=== PATIENT | female | born 1950 | race Caucasian/White ===

== ENCOUNTER → 2016-11-07 | Day surgery (SDC) | payer MEDICARE ==
[~2016-11-07] MED LIST: AMBI5TAB PO; ASPI81CH37 PO; ATEN50TA PO; ATOR1TAB18 PO; CLOB0.055 TOPICAL; CONTOUR1 SQ; FLUT50SP EACH NARE; GLIM1TAB PO; LACTATED RINGER'S 1000 ML INJ 1,000 ML ONE; METF500 PO; NITR.3 SL; OMEP40CA2 PO; PAXI30TA7 PO; PLAV75TA29 PO; PROPOFOL 500 MG/50 ML BTL IV ONE; [UNRECOGNIZED DRUG - CODE] TOPICAL
--- NOTE | 2016-11-07 11:27 | GIPROC ---
[facility] [address] [facility], [address] EGD PROCEDURE REPORT EXAM DATE: 11/07/2016 PATIENT NAME: Penelope Fay MR #: [id number] BIRTHDATE: 1950 ATTENDING: Xochitl Hnery MD ORDER #: [id number] TRAPEZE ARTIST: Soila Stevens RN STATUS: outpatient INDICATIONS: The patient is a 66 yr old female here for an EGD due to reflux, abdominal pain, abnormal ct PROCEDURE PERFORMED: EGD w/ biopsy MEDICATIONS: None and Per Anesthesia. TOPICAL ANESTHETIC: none CONSENT: The patient understands the risks and benefits of the procedure and understands that these risks include, but are not limited to: sedation, allergic reaction, infection, perforation and/or bleeding. Alternative means of evaluation and treatment include, among others: physical exam, x-rays, and/or surgical intervention. The patient elects to proceed with this endoscopic procedure. medical equipment was checked for proper function. Hand hygiene and appropriate measures for infection prevention was taken. After the risks, benefits and alternatives of the procedure were thoroughly explained, Informed consent was verified, confirmed and timeout was successfully executed by the treatment team. The patient was anesthetized with topical anesthesia and the EC-2990Li ([id number]) endoscope was introduced through the mouth and advanced to the second portion of the duodenum. Retroflexed views revealed a hiatal hernia The gastroscope was then slowly withdrawn and removed. Duodenum normal-biopsy gastritis antrum-biopsy esophagitis distal esophagus-biopsy. ADVERSE EVENTS: There were no complications. IMPRESSIONS: 1. Duodenum normal-biopsy gastritis antrum-biopsy esophagitis distal esophagus-biopsy 2. Retroflexed views revealed a hiatal hernia RECOMMENDATIONS: 1. Await biopsy results. Biopsy results will not be ready for 7-10 days. If you don't hear from us in two weeks, call our office for biopsy results. 2. Anti-reflux regimen 3. Continue PPI PATIENT CONDITION: stable DISPOSITION: Home REPEAT EXAM: EGD pending biopsy results Xochitl Henry MD eSigned: Xochitl Henry MD 11/07/2016 11:26 AM cc: [employer] Jeannie
--- NOTE | 2016-11-07 11:30 | GIPROC ---
[facility] [address] [facility], [address] COLONOSCOPY PROCEDURE REPORT EXAM DATE: 11/07/2016 PATIENT NAME: Penelope Fay MR #: [id number] BIRTHDATE: 1950 ENDOSCOPIST: Xochitl Henry MD ORDER #: [id number] [employer] OUTFITTER: Soila Stevens RN STATUS: outpatient INDICATIONS: The patient is a 66 yr old female here for a colonoscopy due to abdominal pain, abnormal ct PROCEDURE PERFORMED: Colonoscopy with biopsy MEDICATIONS: None and Per Anesthesia. PREP QUALITY: good PREP TYPE:Other: ESTIMATED BLOOD LOSS: None CONSENT: The patient understands the risks and benefits of the procedure and understands that these risks include, but are not limited to: sedation, allergic reaction, infection, perforation and/or bleeding. Alternative means of evaluation and treatment include, among others: physical exam, x-rays, and/or surgical intervention. The patient elects to proceed with this endoscopic procedure. medical equipment was checked for proper function. Hand hygiene and appropriate measures for infection prevention was taken. After the risks, benefits and alternatives of the procedure were thoroughly explained, Informed consent was verified, confirmed and timeout was successfully executed by the treatment team. A digital exam was performed and revealed external hemorrhoids The EC-2990Li ([id number]) and EC-3490Li ([id number]) endoscope was introduced through the anus and advanced to the terminal ileum which was intubated for a short distance. The instrument was then slowly withdrawn as the colon was fully examined. COLON FINDINGS: Diverticulosis sigmoid,descending spastic sigmoid colon erythema sigmoid-biopsy terminal ileum , cecum looked normal. Retroflexed views revealed internal hemorrhoids and Retroflexed views revealed small internal hemorrhoids The scope was then completely withdrawn from the patient and the procedure terminated. PROCEDURE WITHDRAWAL TIME:6minutes ADVERSE EVENTS: There were no complications. IMPRESSIONS: 1. Diverticulosis sigmoid,descending spastic sigmoid colon erythema sigmoid-biopsy terminal ileum , cecum looked normal 2. Retroflexed views revealed internal hemorrhoids 3. Retroflexed views revealed small internal hemorrhoids 4. Was performed 5. Revealed external hemorrhoids RECOMMENDATIONS: 1. Await biopsy results. Biopsy results will not be ready for 7-10 days. If you don't hear from us in two weeks, call our office for results. 2. Benefiber 2 tsp daily 3. Avoid NSAIDS and Aspirin 4. Probiotics from any [facility] or health food store 5. Yearly rectal exams 6. Trial of Bentyl 10 mg po tid mr enterography general surgery consult-abnormal ct, colonoscopy negative RECALL: Colonoscopy, pending biopsy results Xochitl Henry MD eSigned: Xochitl Henry MD 11/07/2016 11:30 AM cc: Thomas Avila [facility] Jeannie PATIENT NAME: Penelope Fay MR#: [id number]
== END | disposition home or self-care (01) ==
LOC: ESDC 08:54
PROVIDERS: ATTEND Internal Medicine Gastroenterology
DX: R10.9 Unspecified abdominal pain (principal); R93.5 Abnormal findings on diagnostic imaging of other abdominal regions, including retroperitoneum; K57.90 Diverticulosis of intestine, part unspecified, without perforation or abscess without bleeding; K64.8 Other hemorrhoids; K21.9 Gastro-esophageal reflux disease without esophagitis; K44.9 Diaphragmatic hernia without obstruction or gangrene; K29.70 Gastritis, unspecified, without bleeding; K20.9 Esophagitis, unspecified
CPT/HCPCS: 00740; 00810; 43239; 45380; 88305; J7120